=== PATIENT | male | born 1985 | race Caucasian/White ===

== ENCOUNTER 2024-06-05 18:29 | Emergency (ER) | payer BC, SELFPAY ==
[2024-06-05 18:31] VITALS: BP 215/117
[2024-06-05 18:46] VITALS: BP 163/95
[2024-06-05] MEDS: NSS 1000 IV (19:07)
--- NOTE | 2024-06-05 19:07 | ED.GENMED ---
History of Present Illness
General
Chief Complaint: Cold/Flu/URI Symptoms
Source: patient
Exam Limitations: none
Time Seen by Provider: 06/05/24 18:49
History of Present Illness
History of Present Illness:
38-year-old male presents with ongoing cough. He has been coughing for about a week. He states his son is sick with pneumonia. He was at the urgent care twice over the past week and is finished his third day of Zithromax. Since starting the
antibiotic he feels somewhat improved. He is also on promethazine with dextromethorphan for cough. He denies a fever. No chest pain or shortness of breath. No leg swelling.
Past History
Past History
ED Past Medical History: None
ED Past Surgical History: None
Social History
Tobacco: Non-smoker
Phy Exam
Physical Exam
Physical Exam:
General: Well-appearing nontoxic male no acute respiratory distress
HEENT: NC/AT
Heart: RRR, no murmurs
Lungs; CTA no obvious wheeze or rales
Ext: no cyanosis or edema
Skin: Warm no rash.
Course
Orders/Labs/Results
Orders:
Orders
06/05/24 18:36
EKG [Electrocardiogram (*1)] Urgent
Reason for Study: Hypertension, Benign
EKG- Treatment ONCE
06/05/24 18:59
0.9% Sodium Chloride 1000 ml [Nss] 1,000 ml IV BOLUS
CR Chest - 2 Views Urgent
Comment:
Reason For Exam: cough
06/05/24 19:03
Complete Blood Count/With Diff Urgent
Comprehensive Metabolic Panel Urgent
Abnormal Lab Results
06/05/24
19:03
Abs Immat Gran (auto) 0.1 H 10^3/uL
(0-0.05)
Absolute Neuts (auto) 6.7 H 10^3/uL
(1.4-6.5)
Absolute Monos (auto) 0.8 H 10^3/uL
(0.1-0.6)
Immature Gran % 1.3 H %
(0-0.5)
Lymphocytes % 19.8 L %
(20.5-51.1)
BUN 22 H mg/dl
(9-20)
Glucose 105 H mg/dl
(70-99)
06/05/24 19:03
06/05/24 19:03
Vital Signs
Initial and Last Documented VS:
Initial Vital Signs
Temp Pulse Resp BP Pulse Ox
98.1 F 105 24 215/117 97
06/05/24 18:31 06/05/24 18:31 06/05/24 18:31 06/05/24 18:31 06/05/24 18:31
Last Documented Vital Signs
Temp Pulse Resp BP Pulse Ox
98.1 F 98 22 147/88 96
06/05/24 18:31 06/05/24 18:46 06/05/24 18:46 06/05/24 20:00 06/05/24 20:15
MDM/Problems Addressed
Differential Diagnosis Includes:
Patient with persistent cough. He had elevated blood pressure readings at home and presented here for evaluation. No chest pain. Not hypoxic. Blood pressure 160s over 90s here. X-ray pending basic labs pending fluids ordered
*Critical Care Note
Total Time (30-74mins, 75-104mins- exclusive of procedures): Not Applicable
Update Note
Update Note:
Chest x-ray clear. Labs reviewed without significant finding. Blood pressure significantly improved. I advised the patient continue his Zithromax until complete. Stable for discharge
ED Attending Note
-
Portions of this chart may have been created with voice recognition software.� Occasional wrong word or��sound alike� substitutions may have occurred due to the inherent limitations of voice recognition software.
Discharge Plan
Departure
Patient Disposition: Home (Routine Discharge)
Date of Disposition: 06/05/24
Time of Disposition: 20:22
Patient with high blood pressure during this ER visit?: No
Discharge Problem:
URI (upper respiratory infection)
Instructions: Viral Upper Respiratory Infection, Adult (DC)
Prescriptions:
No Action
prednisone 50 MG tablet
50 mg PO DAILY Qty: 5 0RF
albuterol sulfate 1 PUFF HFA aerosol inhaler
2 puff inhalation R [id number] PRN (Reason: cough) Qty: 1 0RF
Referrals:
NONE,* [Family Provider] -
Activity Restrictions/Additional Instructions:
Continue antibiotics until complete. Turn here if worse otherwise follow-up with your doctor
Interventions
Interventions:
*Risk Screen - Suicide Last Done: 06/05/24 18:31
*General Assessment Last Done: 06/05/24 18:31
*Neglect/Abuse Screening Last Done: 06/05/24 18:31
ED- Fall Risk Assessment Last Done: 06/05/24 18:50
*ED COVID-19 Vaccine History Last Done: 06/05/24 18:31
ED- Pulmonary Assessment Last Done: 06/05/24 18:50
Discharge Date and Time
Print Language: [id number]
[2024-06-05 19:08] LABS: % Basophils 0.6 % (0-2); % Eosinophils 1.6 % (0-6); % Immature Granulocytes 1.3 % (0-0.5); % Lymphocytes 19.8 % (20.5-51.1); % Monocytes 8.5 % (1.7-9.3); % Neutrophils 68.2 % (42.2-75.2); Absolute Basophils 0.1 10^3/uL (0-0.2); Absolute Eosinophils 0.2 10^3/uL (0-0.7); Absolute Immature Granulocytes 0.1 10^3/uL (0-0.05); Absolute Monocytes 0.8 10^3/uL (0.1-0.6); Absolute Neutrophils 6.7 10^3/uL (1.4-6.5); Hematocrit 39.8 % (39.0-52.0); Hemoglobin 14.1 g/dL (13.0-18.0); Mean Corp Hgb Conc. 35.4 g/dL (33.0-37.0); Mean Corpuscular Hgb 29.6 pg (27.0-31.0); Mean Corpuscular Volume 83.4 fL (80.0-94.0); Mean Platelet Volume 8.3 fL (7.4-10.4); Nucleated Red Blood Cells % 0 % (-); Platelet Count 252 10^3/uL (130-400); Red Blood Cell Count 4.77 10^6/uL (4.70-6.10); Red Cell Dist. Width 12.1 % (11.5-14.5); White Blood Cell Count 9.9 10^3/uL (4.8-10.8)
[2024-06-05 19:36] LABS: ALT (SGPT) 47 U/L (0-50); AST (SGOT) 36 U/L (17-59); Albumin 4.1 g/dl (3.5-5.0); Alkaline Phosphatase 96 U/L (38-126); Blood Urea Nitrogen 22 mg/dl (9-20); Calcium 9.2 mg/dl (8.4-10.2); Carbon Dioxide 27 mmol/L (22-30); Chloride 101 mmol/L (98-107); Glucose 105 mg/dl (70-99); Potassium 3.8 mmol/L (3.5-5.1); Sodium 138 mmol/L (135-145); Total Bilirubin 0.4 mg/dl (0.2-1.3); eGFR > 60.00
[2024-06-05 20:00] VITALS: BP 147/88
== END 2024-06-05 20:32 | disposition home or self-care (01) ==
LOC: EMR 18:29
PROVIDERS: Physician Assistant; EMERGENCY PHYSICIAN Emergency Medicine
DX: J06.9 Acute upper respiratory infection, unspecified (principal)
CPT/HCPCS: 99283; 96360; 71046; 80053; 85025; 93005

== ENCOUNTER 2025-07-24 20:42 | Emergency (ER) | payer BC, SELFPAY ==
[2025-07-24 20:45] VITALS: BP 149/90
[2025-07-24 21:05] LABS: Hematocrit 43.3 % (39.0-52.0); Hemoglobin 15.1 g/dL (13.0-18.0); Mean Corp Hgb Conc. 34.9 g/dL (33.0-37.0); Mean Corpuscular Volume 87.1 fL (80.0-94.0); Nucleated Red Blood Cells % 0 % (-); Platelet Count 231 10^3/uL (130-400); Red Cell Dist. Width 11.9 % (11.5-14.5)
[2025-07-24 21:20] LABS: Urine Character Clear (Clear)
[2025-07-24 21:32] LABS: ALT (SGPT) 34 U/L (0-50); AST (SGOT) 25 U/L (17-59); Albumin 4.6 g/dl (3.5-5.0); Alkaline Phosphatase 75 U/L (38-126); Blood Urea Nitrogen 25 mg/dl (9-20); Calcium 9.3 mg/dl (8.4-10.2); Carbon Dioxide 25 mmol/L (22-30); Chloride 102 mmol/L (98-107); Glucose 103 mg/dl (70-99); Potassium 4.0 mmol/L (3.5-5.1); Sodium 135 mmol/L (135-145); Total Protein 7.5 g/dl (6.3-8.2); eGFR > 60.00
[2025-07-24 21:52] LABS: Urine Squamous Cell 0-2 /LPF (Few)
[2025-07-24 21:53] LABS: Urine Red Blood Cell 0-2 /HPF (0-2); Urine White Cell 0-2 /HPF (0-5)
== END 2025-07-25 01:35 ==
LOC: EMR 20:42
PROVIDERS: Emergency Medicine
DX: Z53.21 Procedure and treatment not carried out due to patient leaving prior to being seen by health care provider (principal)
CPT/HCPCS: 80053; 81003; 81015; 85025